=== PATIENT | male | born 1965 | race Caucasian/White ===

== ENCOUNTER 2018-05-18 06:31 | Day surgery (SDC) | payer OTHER ==
[~2018-05-18] VITALS: Ht 162.6 cm; Wt 70.1 kg
[2018-05-18] VITALS (18 sets, daily range): BP systolic 119–142; BP diastolic 75–96; PULSE 68–86; RESP 14–23; Ht 162.6 cm; Wt 70.1 kg
[2018-05-18] MEDS ORDERED: SOD CHLORIDE 0.9% 1,000 ML IV SCH (07:00)
[2018-05-18] MEDS ORDERED: PRAV20TA63 PO (07:29)
[2018-05-18] MEDS ORDERED: LISI-471 PO (07:29)
[2018-05-18] MEDS ORDERED: AMLO2.5T78 PO (07:29)
[2018-05-18] MEDS ORDERED: FOLI1TAB5 PO (07:30)
[2018-05-18] MEDS ORDERED: CEFAZOLIN 2 GM/50 ML (PMX) 50 ML IVPB ONE (07:30)
[2018-05-18] MEDS ORDERED: ERGO2000 PO (07:31)
--- NOTE | 2018-05-18 09:06 | PREAC ---
Date/Time of Note Date/Time of Note DATE: 05/18/18 TIME: 09:05 Anesthesia Eval and Record Evaluation Time Pre-Procedure Interview DATE: 05/18/18 TIME: 09:05 Age 52 Sex male NPO: 8 hrs Preoperative diagnosis right inguinal hernia Planned procedure right open inguinal hernia repair Past Medical History Past Medical History: Includes Cardio: HTN, Dyslipidemia Surgery & Anesthesia Issues No known issue Meds Anticoagulation: No Beta Shellie within 24 hr: No Reason Beta Shellie not given: Pt. not on B-Shellie Reported Medications Ergocalciferol (Vitamin D2) (VITAMIN D2) 2,000 Unit Tablet, 2000 UNIT PO DAILY, TAB 05/18/18 Folic Acid/Multivits-Min/Lut (Centrum Silver Chewable Tablet) 1 Each Tab.chew, 1 EACH PO DAILY, TAB.CHEW 05/18/18 Pravastatin Sodium* (Pravastatin Sodium*) 20 Mg Tablet, 20 MG PO HS, TAB 05/18/18 Amlodipine Besylate* (Amlodipine Besylate*) 2.5 Mg Tablet, 2.5 MG PO DAILY, #30 TAB 05/18/18 Lisinopril* (Lisinopril*) 20 Mg Tablet, 20 MG PO DAILY, #30 TAB 05/18/18 Current Medications Sodium Chloride 1,000 ml @ 75 mls/hr [id number] IV Last administered on 05/18/18at 07:32; Admin Dose 75 MLS/HR; Start 05/18/18 at 07:00; Stop 05/18/18 at 20:19 Meds reviewed: Yes Allergies Coded Allergies: No Known Drug Allergies (Unverified Allergy, Unknown, 05/15/18) Allergies Reviewed: Yes Labs/Studies Labs Reviewed: Reviewed by anesthesiologist test: N/A Pre-procedure Exam Last vitals Vital Signs Date Temp Pulse Resp B/P (MAP) Pulse Ox O2 O2 Flow FiO2 Time Delivery Rate 05/18/18 97.7 71 18 125/79 99 Room Air 07:35 (94) Airway: Adequate mouth opening, Adequate thyromental dist Mallampati: Mallampati III Teeth: Normal Lung: Normal Heart: Normal ASA Physical Status ASA physical status: 2 Emergency: None Pre-operative Attestations Prior to commencing anesthesia and surgery, the patient was re-evaluated, there was verification of: *The patient's identity *The results of appropriate recent lab work and preoperative vital signs *The above evaluation not changing prior to induction *Anesthetic plan, risk benefits, alternative and complications discussed with patient/family; questions answered; patient/family understands, accepts and wishes to proceed. LETY LINDQUIST DO May 18, 2018 09:06
[2018-05-18] MEDS ORDERED: ETOMIDATE 20 MG INJ ONE (09:13)
[2018-05-18] MEDS ORDERED: MIDAZOLAM 1 MG/ML 2 ML INJ ONE (09:13)
[2018-05-18] MEDS ORDERED: PROPOFOL 20 ML ONE (09:13)
[2018-05-18] MEDS ORDERED: LIDOCAINE 2% (SDV) 5 ML INJ ONE (09:13)
[2018-05-18] MEDS ORDERED: ROPIVACAINE 0.5 % 30 ML VIAL ONE (09:15)
[2018-05-18] MEDS ORDERED: OXYCODONE/ACETAMINOPHEN (5/325) TAB PO PRN ×2 (09:30)
[2018-05-18] MEDS ORDERED: hydrALAzine 20 MG INJ IV PRN (09:30)
[2018-05-18] MEDS ORDERED: LABETALOL HCL 20MG INJ IV PRN (09:30)
[2018-05-18] MEDS ORDERED: HYDROmorphONE 1 MG/5 ML IV SYRINGE IV PRN (09:30)
[2018-05-18] MEDS ORDERED: ONDANSETRON 4 MG INJ IV PRN (09:30)
[2018-05-18] MEDS ORDERED: CEFAZOLIN 1 GM INJ ONE (09:36)
[2018-05-18] MEDS ORDERED: DEXAMETHASONE 4 MG/ML 5 ML INJ ONE (09:37)
[2018-05-18] MEDS ORDERED: ONDANSETRON 4 MG INJ ONE (09:37)
[2018-05-18] MEDS ORDERED: POLYMYXIN/BACITRACIN 1L IRRIG ONE (09:45)
[2018-05-18] MEDS ORDERED: FENTAnyl 50 MCG/ML VIAL ONE (09:55)
--- NOTE | 2018-05-18 10:06 | OPR ---
Date/Time of Note Date/Time of Note DATE: 05/18/18 TIME: 10:03 Operative Report Procedure Date: May 18, 2018 Preoperative Diagnosis right incarcerated inguinal hernia Postoperative Diagnosis same Operation/Procedure Performed open right incarcerated inguinal hernia repair with large ultrapro hernia system mesh Surgeon see signature line Sales Service Coordinator none Anesthesia Type: general Estimated Blood Loss: 0 - 10 ml's Transfusion none Specimen none Grafts/Implants none Complications none Pt Condition Post Procedure: stable Indications This is a 52-year-old male with incarcerated right inguinal hernia. He requires surgical repair. Risks alternatives benefits and percent were discussed the patient. Patient expressed understanding and consents to the operation. Procedure Description Patient taken to the OR and prepped and draped in usual sterile fashion. Surgical time was performed. IV antibiotics were given. Right inguinal oblique incision with a 10 blade. Dissection with cautery was carried onto the fascia. The extremity fascia was opened with a 15 blade. This incision is extended inferior medially and lateral superiorly with Metzenbaum scissors. Cord structures encircled with a Benito drain. Large indirect incarcerated inguinal hernia is identified. Lysis of adhesions was performed. The incarcerated hernia was manually reduced. This area was then bolstered with the disc portion of the ultra pro hernia system mesh. The disc is secured in place with a running 0 Prolene from the pubic tubercle along the shelving is unlimited. Superiorly the disc is secured to the internal oblique with interrupted 3-0 Vicryl. Onlay mesh is secured in a similar fashion with a running 0 Prolene from the pubic tubercle along the shelving single limit. Straps are created and reapproximated around the cord structures with interrupted 0 Prolene to recreate the inguinal ring. Onlay mesh was secured to the internal oblique with interrupted 3-0 Vicryl. External oblique fascia is closed with running 3-0 Vicryl. Ernesto's fascia was closed with interrupted 3-0 Vicryl. Skin is closed using a inzorb observable skin stapler. A tap block was provided by the anesthesiologist. Dry dressings were applied. Sheng CH May 18, 2018 10:06
--- NOTE | 2018-05-18 10:10 | PAC ---
Date/Time of Note Date/Time of Note DATE: 05/18/18 TIME: 10:09 Post-Anesthesia Notes Post-Anesthesia Note Last documented vital signs Vital Signs Date Temp Pulse Resp B/P (MAP) Pulse Ox O2 O2 Flow FiO2 Time Delivery Rate 05/18/18 98.6 75 18 120/75 99 Room Air 1010 Activity: WNL Respiratory function: WNL Cardiovascular function: WNL Mental status: Baseline Pain reasonably controlled: Yes Hydration appropriate: Yes Nausea/Vomiting absent: Yes LETY LINDQUIST DO May 18, 2018 10:09
[2018-05-18] MEDS ORDERED: HYDROCODONE/APAP (5/325) TAB PO ONE (10:30)
[2018-05-18] MEDS: HYDROmorphONE 1 MG/5 ML IV SYRINGE IV PRN ×2 (10:51→10:58)
[2018-05-18] MEDS ORDERED: LIDOCAINE 100 MG SYRINGE ONE (14:58)
== END 2018-05-18 12:45 | disposition home or self-care (01) ==
LOC: SDS 06:31
PROVIDERS: ATTEND Surgery
DX: K40.30 Unilateral inguinal hernia, with obstruction, without gangrene, not specified as recurrent (principal); I10 Essential (primary) hypertension; E78.5 Hyperlipidemia, unspecified
CPT/HCPCS: 49507; C1781; J0690; J1100; J1170; J2001; J2250; J2405; J2795; J3010